=== PATIENT | male | born 1980 | race Two or more races ===

== ENCOUNTER 2021-08-27 13:05 | Emergency (ER) | payer BC ==
[2021-08-27] MEDS ORDERED: cefTRIAXone 500 MG, Lidocaine 1% 1 ML IM ONE ×2 (14:08)
[2021-08-31 00:10] LABS: CHLAMYDIA TRACHOMATIS, NAA Negative (Negative); NEISSERIA GONORRHOEAE, NAA Negative (Negative)
== END 2021-08-27 15:00 | disposition home or self-care (01) ==
LOC: JP.ED 13:05
DX: F41.9 Anxiety disorder, unspecified (principal); F32.A Depression, unspecified; G47.00 Insomnia, unspecified; F43.23 Adjustment disorder with mixed anxiety and depressed mood; Z11.3 Encounter for screening for infections with a predominantly sexual mode of transmission; Z79.899 Other long term (current) drug therapy
CPT/HCPCS: 81001; 87491; 87591; 96372; 99282; 99283; J0696

== ENCOUNTER 2022-11-24 06:05 | Emergency (ER) | payer OTHER, BC ==
[2022-11-24] MEDS ORDERED: Diphtheria,Pertussis(Acell),Tetanus Vaccine 0.5 ML Syringe IM ONE (06:36)
[2022-11-24] MEDS ORDERED: Bacitracin Oint 1 GM U/D Packet TOP ONE (06:36)
[2022-11-24] MEDS ORDERED: Lidocaine 1% 5 ML VIAL INJECT ONE (06:36)
== END 2022-11-24 07:25 | disposition home or self-care (01) ==
LOC: JP.ED 06:05
DX: S61.011A Laceration without foreign body of right thumb without damage to nail, initial encounter (principal); Z23 Encounter for immunization; W26.8XXA Contact with other sharp object(s), not elsewhere classified, initial encounter; Y92.89 Other specified places as the place of occurrence of the external cause; Y99.0 Civilian activity done for income or pay
CPT/HCPCS: 12002; 90471; 90715; 99282-25

== ENCOUNTER 2024-04-11 10:23 | Emergency (ER) | payer BC, OTHER | END 2024-04-11 11:59 | disposition home or self-care (01) | LOC: JP.ED 10:23 | DX: J02.8 Acute pharyngitis due to other specified organisms (principal); Z86.16 Personal history of COVID-19; Z79.82 Long term (current) use of aspirin | CPT/HCPCS: 87428-QW; 87651-QW; 99284 ==

== ENCOUNTER 2024-09-10 06:24 | Day surgery (SDC) | payer OTHER ==
[2024-09-10] MEDS ORDERED: fentaNYL 100 MCG/2 ML SDV ONE (07:01)
[2024-09-10] MEDS ORDERED: Midazolam 1 MG/ML 2 ML SDV ONE (07:01)
[2024-09-10] MEDS ORDERED: Propofol 200 MG/20 ML SDV ONE ×2 (07:01→08:23)
[2024-09-10] MEDS: Lactated Ringers 1,000 ML IV SCH (07:34)
== END 2024-09-10 11:32 | disposition home or self-care (01) ==
LOC: JP.SDS 06:24
PROVIDERS: ATTEND Surgery
DX: D50.0 Iron deficiency anemia secondary to blood loss (chronic) (principal); K22.89 Other specified disease of esophagus
CPT/HCPCS: 00813; 43239; 45378; 88305; J2250; J2704; J3010; J7120

== ENCOUNTER 2024-09-11 08:19 | Day surgery (SDC) | payer OTHER ==
[2024-09-11] MEDS: Lactated Ringers 1,000 ML IV SCH (07:45)
[~2024-09-11 08:19] MED LIST: Midazolam 1 MG/ML 2 ML SDV ONE; Propofol 200 MG/20 ML SDV ONE; fentaNYL 50 MCG/ML SDV ONE
== END 2024-09-11 11:03 | disposition home or self-care (01) ==
LOC: JP.SDS 08:19
PROVIDERS: ATTEND Surgery
DX: K22.89 Other specified disease of esophagus (principal); D64.9 Anemia, unspecified
CPT/HCPCS: 00813; 43239; 45378; J2250; J2704; J3010; J7120; 88305